=== PATIENT | male | born 1955 | race Caucasian/White ===

== ENCOUNTER 2017-05-21 07:14 | Day surgery (SDC) | payer OTHER ==
[~2017-05-21] VITALS: Ht 175.3 cm; Wt 96.3 kg
[~2017-05-21 07:14] MED LIST: ASPIR-LOW81 MG PO; ASPIRIN 32325 MG/TAB PO; ATENOLOL25 MG PO; ATENOLOL50 MG PO; CLOPIDOGREL PO; FISH OIL CONCEN1 SG2 PO; LIPITOR 10MG10 MG PO; LISINOPRIL5 MG PO; MVI; NTG 0.4 SL; TRILEPTAL300 MG PO; ZANTAC 150150 MG PO
[2017-05-21] MEDS ORDERED: ASPIRIN 81M81 MG/TA2 PO (07:45)
[2017-05-21] MEDS ORDERED: PROSCAR 5MG5 MG PO (07:48)
[2017-05-21] MEDS ORDERED: EPA FISH OIL1 SGL PO (07:48)
[2017-05-21] MEDS ORDERED: MASON NATURAL2000 IU PO (07:49)
[2017-05-21] MEDS ORDERED: LIPITOR 10MG10 MG PO (07:49)
[2017-05-21] MEDS ORDERED: PROTONIX 40MG T40 MG PO (07:49)
[2017-05-21 07:51] VITALS: BP 144/85; PULSE 64; TEMP 98.1
[2017-05-21 09:30] VITALS: BP 144/85; PULSE 67; TEMP 98.6
[2017-05-21 09:45] VITALS: BP 118/85; PULSE 66
[2017-05-21 10:00] VITALS: BP 118/86; PULSE 68
[2017-05-21 10:15] VITALS: BP 118/67; PULSE 63
== END 2017-05-21 10:20 | disposition home or self-care (01) ==
LOC: SDCO 07:14
DX: K44.9 Diaphragmatic hernia without obstruction or gangrene (principal); K29.30 Chronic superficial gastritis without bleeding; E78.5 Hyperlipidemia, unspecified; I25.2 Old myocardial infarction; Z79.82 Long term (current) use of aspirin; Z95.5 Presence of coronary angioplasty implant and graft; Z85.828 Personal history of other malignant neoplasm of skin; I25.10 Atherosclerotic heart disease of native coronary artery without angina pectoris
CPT/HCPCS: OP; J2250; J3010; J7030